=== PATIENT | male | born 1950 | race Caucasian/White ===

== ENCOUNTER → 2016-03-19 | Outpatient (CLI) | payer OTHER ==
--- NOTE | 2016-03-19 11:43 | DX ---
Lumbar Spine, AP Upright, Neutral Lateral, and Lateral Flexion and Extension Views, 4 Views Total, at 10:30 a.m. Clinical History: 65-year-old male with low back pain. ICD-10 Diagnostic Code: M51.37. Comparison Study: CT scan of the abdomen and pelvis dated December 24, 2005 (retrieved from archive [facility]). Findings: There are 5 nonrib-bearing lumbar-type vertebral bodies. There is a 10 degree lumbar levosc oliosis. The vertebral body heights and posterior alignments are maintained. There is 4 mm of L3 post erolisthesis above L4, with no evidence of instability with flexion or extension maneuvers. The inter pediculate distances are appropriate. The disk spaces are reasonably well-preserved. There are small ventral traction osteophytes at multiple levels. There is some facet hypertrophy in the [id number] lumbar spine. The SI joints appear normal. Impression: 1. There is a mild lumbar levoscoliosis measuring 10 degrees. 2. Degenerative spondylosis with [id number] lumbar facet osteoarthropathy. 3. Trace L3-L4 retrolisthesis, with no instability. Should the patient develop radicular symptoms in addition to his lumbago, MR imaging may be indicated .
== END ==
LOC: FIMAGING 10:20
PROVIDERS: ATTEND Family Medicine Sports Medicine
DX: M54.5 Low back pain (principal); M41.9 Scoliosis, unspecified; M43.16 Spondylolisthesis, lumbar region; M43.06 Spondylolysis, lumbar region

== ENCOUNTER → 2016-04-04 | Outpatient (CLI) | payer OTHER ==
--- NOTE | 2016-04-04 19:25 | MR ---
MRI of the Lumbar Spine (Without Contrast) Clinical Indications: Right lower extremity sciatica. Back pain. Technique: Sagittal and axial T1 and T2 MR sequences of the lumbar spine without contrast. Findings: L1-L2: No disk herniation or stenosis. L2-L3: Disk desiccation, without disk prolapse or neural impingement. Foramina are widely patent. L3-L4: Disk desiccation and mild diffuse annular bulging, extending into the foramina bilaterally. Th e right neural foramen is mildly stenotic. Left neural foramen is moderately stenotic, and there is a broad-based far lateral component of disk herniation at this level with mass effect on the exiting l eft L3 nerve root far laterally. L4-L5: Disk desiccation and annular bulging, extending to the foramina bilaterally. There is moderate to advanced right foraminal stenosis secondary to annular bulging and facet degenerative hypertrophy . The left neural foramen is mildly narrowed. L5-S1: No disk herniation or stenosis. Lumbar alignment is normal. Marrow signal intensity is benign. Impression: 1. With reference to right lower extremity radiculopathy, findings most pronounced at L4-L5 where the re is relatively advanced right neural foraminal stenosis secondary to annular bulging and facet dege nerative hypertrophy. 2.Broad-based far lateral disk protrusion at L3-L4 with mass effect on the L3 nerve root laterally. 3. Other level findings as above.
== END ==
LOC: FIMAGING 15:55
PROVIDERS: ATTEND Family Medicine Sports Medicine
DX: M48.06 Spinal stenosis, lumbar region (principal); M51.26 Other intervertebral disc displacement, lumbar region